=== PATIENT | female | born 1995 | race Caucasian/White ===

== ENCOUNTER 2025-01-21 12:38 | Emergency (ER) | payer OTHER, SELFPAY ==
[2025-01-21 12:49] VITALS: PULSE 94; RESP 18; TEMP 36.8; O2SAT 98; BMI 22.0
--- NOTE | 2025-01-21 13:51 | CRLHL7_ITS ---
For Patients: As a result of the Century Cures Act, medical imaging exams and procedure reports are released immediately into your electronic medical record. You may view this report before your referring provider. If you have questions, please contact your health care provider. INDICATION: Paresthesias, weakness, vision changes. TECHNIQUE: Noncontrast CT of the head with multiplanar reconstruction utilizing bone and soft tissue algorithms. COMPARISON: None available. FINDINGS: No acute intracranial hemorrhage. The banks-white matter interface is preserved. The ventricles are normal in size. No abnormal extra-axial fluid collection is identified. Normal calvarium and skull base. Unremarkable orbits. The imaged paranasal sinuses and mastoid air cells are clear. IMPRESSION: Unremarkable noncontrast CT of the head. Please note that all CT scans at this facility use dose modulation, iterative reconstruction, and/or weight-based dosing when appropriate to reduce radiation dose to as low as reasonably achievable. Dictated by Vinny Rosales MD @ 01/21/2025 2:53:40 PM (Electronically Signed)
--- NOTE | 2025-01-21 13:52 | ED.GENADULT ---
HPI - General Adult General Chief complaint: Neuro Symptoms/Altered Deficit Stated complaint: Right side numb and blurry vision. Time Seen by Provider: 01/21/25 12:56 History of Present Illness HPI narrative: This 29-year-old female comes in reporting some altered sensation in the right side of her face and also a little bit in her right leg. She does not report any weakness. She states that she is returning to her [place] [facility] soon and her insurance here expires tomorrow. She is worried about these symptoms but does not describe any other past medical history or problems. Related Data Home Medications ?Medication ?Instructions ?Recorded ?Confirmed methimazole 5 mg tablet 5 mg PO DAILY 01/21/25 01/21/25 propranolol 10 mg tablet 10 mg PO BID 01/21/25 01/21/25 Previous Rx's ?Medication ?Instructions ?Recorded methylprednisolone 4 mg tablets in See Rx Instructions PO .COMPLEX 01/21/25 a dose pack (Medrol (Huber)) #21 ea Allergies Allergy/AdvReac Type Severity Reaction Status Date / Time No Known Drug Allergies Allergy Verified 01/21/25 12:45 Review of Systems Status of ROS: Reports: 10 or more systems reviewed and unremarkable except as noted in History and below Narrative: Constitutional: No fevers, no weight gain or loss. Eyes: No discharge. No vision changes. HENT: No congestion, no sore throat, no ear pain. Cardiovascular: No chest pain, no palpitations. Respiratory: No shortness of breath, no wheezes, no cough. Gastrointestinal: No abdominal pain, no vomiting, no diarrhea. Genitourinary: No dysuria, no hematuria. Musculoskeletal: Normal range of motion. Skin: No rashes, no pruritis. Neurological: No dizziness, weakness, speech change. Sensory changes described above. Endo/Heme/Allergies: No bruising or bleeding. No polydipsia. Pysch: no suicidality, no anxiety, no insomnia. All other systems reviewed and are negative. Exam Narrative: Exam Narrative: Constitutional: Well-developed, well-nourished, no acute distress. HEENT: Normocephalic, atraumatic. Neck: Normal range of motion. Nontender. Supple. Heart: Regular. No murmurs. Normal rate. Intact distal pulses. Lungs: Clear to auscultation. No chest discomfort. No wheezes, rhonchi, or rales. Abdomen: Normal bowel sounds. Nontender. No rebound tenderness. Genitalia: Deferred. Back: No midline tenderness. Normal range of motion. Extremities: Normal range of motion. No injury. Skin: Intact. No rash. Warm. No erythema or pallor. Neurologic: No altered sensation. No weakness. Alert and oriented. No facial asymmetry. Tongue is midline. [id number]-[id number]-[id number] is normal. No pronator drift. Panel Edge Painter strength is equal bilaterally. Able to raise each leg from the bed. Psychiatric: No suicidality. No anxiety or depression. No insomnia. Nursing notes and vitals signs are reviewed. Const: Vital Signs, click to edit/add: Vital Signs - 24 hr 01/21/25 12:49 Temperature 98.2 F Pulse Rate [Pulse Oximeter] 94 Respiratory Rate 18 Pulse Oximetry 98 Oxygen Delivery Me thod Room Air Course Vital Signs Vital signs: Initial Vital Signs Temperature 98.2 F 01/21/25 12:49 Temperature Source Temporal Artery Scan 01/21/25 12:49 Pulse Rate 94 01/21/25 12:49 Respiratory Rate 18 01/21/25 12:49 Pulse Oximetry 98 01/21/25 12:49 Oxygen Delivery Method Room Air 01/21/25 12:49 Vital Signs Temperature 98.2 F 01/21/25 12:49 Pulse Rate 94 01/21/25 12:49 Respiratory Rate 18 01/21/25 12:49 Pulse Oximetry 98 01/21/25 12:49 Oxygen Delivery Method Room Air 01/21/25 12:49 Temperature 98.2 F 01/21/25 12:49 Pulse Rate 94 01/21/25 12:49 Respiratory Rate 18 01/21/25 12:49 Pulse Oximetry 98 01/21/25 12:49 Oxygen Delivery Method Room Air 01/21/25 12:49 Medical Decision Making MDM Narrative Medical decision making narrative: This patient comes in with concern about some decreased or altered sensation in her right face and also her right thigh. She is otherwise healthy and has no other complaints. Her neurologic exam is completely normal. She does have a fair amount of anxiety about these symptoms despite reassurance with her exam and vital signs. A CT scan and lab work was obtained and these also returned with normal findings. The patient is okay to be discharged home. I did provide a prescription for Medrol Dosepak which may provide some benefit for its anti-inflammatory affect. Lab Data Labs: Lab Results 01/21/25 Range/Units 13:58 WBC 9.46 (4.50-11.00) K/uL RBC 4.66 (4.00-5.20) m/uL Hgb 13.9 (12.0-16.0) gm/dL Hct 42.2 (33.0-51.0) % MCV 91 (80-100) fL MCH 30 (26-34) pg MCHC 33 (32-36) gm/dL RDW Coeff of Jeri 12.9 (11.5-15.5) % Plt Count 308 (140-440) K/uL Neut % (Auto) 74.4 H (42.0-72.0) % Lymph % (Auto) 20.3 (20-44) % [place] % (Auto) 4.5 (0.0-11.0) % Eos % (Auto) 0.3 (0.0-7.0) % Baso % (Auto) 0.4 (0.0-3.0) % Neut # (Auto) 7.00 (1.7-7.0) K/uL Lymph # (Auto) 1.92 (0.90-2.90) K/uL [place] # (Auto) 0.40 (0.00-0.90) K/UL Eos # (Auto) 0.03 (0.00-0.50) K/uL Baso # (Auto) 0.04 (0.00-0.30) K/uL Abs Immat Gran (auto) 0.01 (0.00-0.30) K/uL Imm/Tot Granulo (auto) 0.1 % Sodium 140 (135-149) mmol/L Potassium 3.8 (3.6-5.1) mmol/L Chloride 101 (96-114) mmol/L Carbon Dioxide 27 (20-32) mmol/L Anion Gap 12 (7-15) mEq/L BUN 11 (5-24) mg/dL Creatinine 0.7 (0.5-1.5) mg/dL Estimated Creat Clear 99.86 Estimated GFR 121 ml/min Glucose 110 (60-115) mg/dL Calcium 9.5 (8.4-10.6) mg/dL Imaging Data CT scan - head: Radiologist's impression: Unremarkable noncontrast CT of the head. Discharge Plan Discharge Clinical Impression: Paresthesias Patient Disposition: Home, Self-Care Condition: Stable Additional Instructions: Take medication as prescribed. Follow up with MD return if worsening. Prescriptions: New methylprednisolone [Medrol (Huber)] 4 mg tablets,dose pack See Rx Instructions .ROUTE .COMPLEX Qty: 21 0RF Rx Instructions: orally per package directions No Action propranolol 10 mg tablet 10 mg PO BID methimazole 5 mg tablet 5 mg PO DAILY Follow Up/Referrals: Provider,Not a Local [Primary Care Provider, Family Practice] Stand Alone Forms: [employer] Info Instructions
[2025-01-21 14:05] LABS: Basophils Absolute Auto 0.04 K/uL (0.00-0.30); Basophils Percent Auto 0.4 % (0.0-3.0); Eosinophils Absolute Auto 0.03 K/uL (0.00-0.50); Eosinophils Percent Auto 0.3 % (0.0-7.0); Hematocrit 42.2 % (33.0-51.0); Hemoglobin* 13.9 gm/dL (12.0-16.0); Immature Granulocytes Abs Auto 0.01 K/uL (0.00-0.30); Immature Granulocytes Pct Auto 0.1 %; Lymphocytes Absolute Auto 1.92 K/uL (0.90-2.90); Lymphocytes Percent Auto 20.3 % (20-44); Mean Corpuscular HGB Conc 33 gm/dL (32-36); Mean Corpuscular Hemoglobin 30 pg (26-34); Mean Corpuscular Volume 91 fL (80-100); Monocytes Percent Auto 4.5 % (0.0-11.0); Neutrophils Percent Auto 74.4 % (42.0-72.0); Platelet Count* 308 K/uL (140-440); RDW Coefficient of Variation % 12.9 % (11.5-15.5); Red Blood Count 4.66 m/uL (4.00-5.20); White Blood Count* 9.46 K/uL (4.50-11.00)
[2025-01-21 14:19] LABS: Chloride* 101 mmol/L (96-114); Potassium* 3.8 mmol/L (3.6-5.1); Sodium* 140 mmol/L (135-149)
--- OUTSIDE RECORDS SUMMARY | 2025-01-21 14:19 | XMS_ITS | Clinical Summary ---
Author Organization [facility] Address [address] [place] [id number] Care Team Providers Care Childbirth Educator Name Role Phone Pcp, No Primary Care Provider UnavailDwaine Davies MD Unavailable [phone] Allergies No known active allergies Medications propranoloL (INDERAL) 10 mg tabletIndicatio ns:Graves disease Take 1 Tablet (10 mg) by mouth two times daily. 180 Tablet 3 5 Active methIMAzole 5 mg tabletIndicatio ns:hyperthyroid ism Take 1/2 tablet daily. 45 Tablet 3 5 Active methIMAzole 5 mg tabletIndicatio ns:hyperthyroid ism Take 1 tablet daily. 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 [address] [place] [phone] Corina Lynn NP Vision Change; Telehealth 01/06/2025 2:45 PM CDT Orders Only [facility] [address] [place] [address] [place], [place] [facility] 01/06/2025 Travel 12/09/2024 Orders Only [facility] [address] [phone] Dwaine Rousseau MD <No scans attached> 11/29/2024 3:15 PM CDT Orders Only [facility] [address] [place] [address] [place] [facility] 11/29/2024 Travel from Last 3 Months Immunizations Immunization Administration Dates Next Due Meningococcal B 04/29/2024 Social History Tobacco Use Types Packs/Day Years Used Date Smoking Tobacco: Never Smokeless Tobacco: Never Tobacco Cessation:Counseling Given: Not Answered Alcohol Use Standard Drinks/Week Comments Yes 1 (1 standard drink = 0.6 oz pur e alcohol) Social Connections Answer Date Recorded Frequency of Communication with Friends and Fami ly Not on file 04/29/2024 Comments No Sex and Gender Information Value Date Recorded Sex Assigned at Not on file Legal Sex Female 4:19 PM CDT Gender Identity Not on file Sexual Orientation Not on file Obstetrics History Last Filed Vital Signs Vital Sign Reading Time Taken Comments Blood Pressure 116/81 04/29/2024 2:46 PM CDT Pulse 97 04/29/2024 2:46 PM CDT Temperature - - Respiratory Rate - - Oxygen Saturation - - Inhaled Oxygen Concentration - - Weight 53.3 kg (117 lb 6.4 oz) 04/29/2024 2:46 P M CDT Height - - Body Mass Index - - Plan of Treatment Health Maintenance Due Date Last Done Comments Tdap 2008 Depression screening for age 12+ 2009 HIV for age 15-65 2012 BMI (ht and wt on same day) for age 18+ 11/18/2015 Hepatitis C screening for ag e 18-79 11/18/2015 Hepatitis B series for 19+ ( 1 of 3 - 19+ 3-dose series) 2016 Tetanus booster 2017 Pap test for age 21-65 2018 COVID-19 vaccine series (2023- season) 2024 Influenza Vaccine (Season Ended) 2025 Pneumococcal series for age 6-49 Aged Out No longer eligible based on patient's age to complete this topic Procedures Procedure Name Priority Date/Time Associated Diagnosis Comments TSH Routine 01/06/2025 2:59 PM CDT Graves disease T4,FREE Routine 01/06/2025 2:59 PM CDT Graves disease TSH Routine 11/29/2024 3:49 PM CDT Graves disease T4,FREE Routine 11/29/2024 3:49 PM CDT Graves disease THYROTROPIN RECEPTOR AB BLOOD Routine 11/29/2024 3:49 PM CDT Graves disease from Last 3 Months Results * (ABNORMAL) TSH (01/06/2025 2:59 PM CDT) Only the most recent of2 resultswithin the time period is included. TSH 6.14(H) mIU/L [facility] Comment: Reference Range > or = 20 Years 0.40-4.50 Ranges First trimester 0.26-2.66 Second trimester 0.55-2.73 Third trimester 0.43-2.91 Blood BLOOD SPECIMEN / Unknown 01/06/2025 2:59 PM CDT 01/06/2025 3:00 PM CDT Dwaine Rousseau MD CHEMISTRY Final Result [facility] [address] [place] [address], [facility] [address] [place] [address] * T4,FREE (01/06/2025 2:59 PM CDT) Only the most recent of2 resultswithin the time period is included. T4, FREE 0.9 0.8 - 1.8 ng/dL [facility] Black[facility] Blood BLOOD SPECIMEN / Unknown 01/06/2025 2:59 PM CDT 01/06/2025 3:00 PM CDT Dwaine Rousseau MD CHEMISTRY Final Result Performing Organization Address City/[facility]/ZIP Co de Phone Number [facility] [address] [place] [address], [facility] [place] [address] [place] [address] * (ABNORMAL) THYROTROPIN RECEPTOR AB BLOOD (11/29/2024 3:49 PM CDT) TRAB 3.57(H) < OR = 2.00 IU/L [facility], Comment: This test was performed using the TRAb Antibody ABIGAIL method which is standardized against the 1st International Standard 90/672 and is reported in International Units (IU/L). The reference range reported was established specifically for this test method. Blood BLOOD SPECIMEN / Unknown 11/29/2024 3:49 PM CDT 11/29/2024 3:50 PM CDT Narrative [facility] - 12/06/2024 10:32 PM CDT FASTING:NO FASTING: NO Dwaine Rousseau MD SEND OUTS Final Result Performing Organization Address City/[facility] Co de Phone Number [facility] [address] [place] [address], [facility], [address] [place] [address] from Last 3 Months Insurance [facility] [id number] Care Teams Childbirth Educator Relationship Specialty Start Date End Date Pcp, No . PCP - General 04/29/24 Dwaine Rousseau MD [address] [place] [phone] Endocrinology 10/05/24
[2025-01-21 14:22] LABS: Anion Gap 12 mEq/L (7-15); Blood Urea Nitrogen* 11 mg/dL (5-24); Calcium* 9.5 mg/dL (8.4-10.6); Carbon Dioxide* 27 mmol/L (20-32); Creatinine* 0.7 mg/dL (0.5-1.5); Est. Creatinine Clearance* 99.86; Estimated Glomerular Filt Rate 121 ml/min; Glucose* 110 mg/dL (60-115); Slide Review Reflex No
--- NOTE | 2025-01-21 16:19 | ED.NURSE ---
Patient that prescription be sent to [facility]. This request was communicated to the MD.
== END 2025-01-21 15:23 | disposition home or self-care (01) ==
PROVIDERS: Emergency Provider Emergency Medicine Emergency Medical Services
DX: R20.2 Paresthesia of skin (principal)
CPT/HCPCS: 36415; 70450; 80048; 85025; 99284